=== PATIENT | female | born 1970 | race African-American/Black ===

== ENCOUNTER 2024-12-20 16:30 | Emergency (ER) | payer OTHER ==
[2024-12-20 16:56] VITALS: BMI 27.4
[2024-12-20 18:16] VITALS: TEMP 98
[2024-12-20 18:34] LABS: ABSOLUTE IMMATURE GRANULOCYTES 0.01 x10^3/uL (0.0-0.031); BASOPHILS # 0.03 x10^3/uL (0.01-0.08); EOSINOPHIL % 2.3 % (0.7-5.8); EOSINOPHILS # 0.13 x10^3/uL (0.04-0.36); HEMATOCRIT 35.8 % (34.1-44.9); MCHC 33.5 g/dl (32.2-35.5); MEAN CELL VOLUME 84.8 fl (79.4-94.8); MEAN PLT VOLUME 10.5 fl (9.4-12.3); MONOCYTE % 8.8 % (4.7-12.5); PLATELET COUNT 284 x10^3/uL (182-369); RDW 13.2 % (12.3-16.6)
[2024-12-20 18:57] LABS: POTASSIUM 3.7 mmol/L (3.5-5.1)
[2024-12-20 18:59] LABS: ALBUMIN 3.7 g/dl (3.4-5.0); CALCIUM 9.6 mg/dL (8.5-10.1)
[2024-12-20 19:00] LABS: BLOOD UREA NITROGEN 10.3 mg/dL (7-18)
[2024-12-20 19:03] LABS: CREATININE 0.8 mg/dL (0.55-1.3)
[2024-12-20 19:04] LABS: BILIRUBIN,TOTAL 0.6 mg/dL (0.2-1); TOT PROT 6.9 g/dl (6.4-8.2)
[2024-12-20 19:12] VITALS: BP 166/80; PULSE 60; RESP 14
[2024-12-20 19:52] LABS: HCV DIAGNOSTIC IN-HOUSE W/RFLX NON-REACTIVE (NONREACTIVE); HIV INTERPRETATION NEGATIVE (NEGATIVE)
== END 2024-12-20 19:33 | disposition home or self-care (01) ==
LOC: JER 16:30
DX: I10 Essential (primary) hypertension (principal); R42 Dizziness and giddiness; R53.83 Other fatigue
CPT/HCPCS: 0241U-QW; 36415; 71045-TC-FY; 80053; 84484; 85025; 86803; 86850; 86870; 86880; 86900; 86901; 86902; 87389; 93005; 93010; 99285-25